=== PATIENT | male | born 1975 | race Caucasian/White ===

== ENCOUNTER 2016-08-08 06:06 | Day surgery (SDC) | payer OTHER ==
[~2016-08-08] VITALS: Ht 182.9 cm; Wt 125.1 kg
[2016-08-08] VITALS (7 sets, daily range): BP systolic 147–168; BP diastolic 95–115; PULSE 88–109; RESP 16–20; TEMP 97.9–98.2; O2SAT 93–97
[2016-08-08] MEDS ORDERED: SODIUM CHLORID 0.9% 500 ML IV PRN (06:45)
[2016-08-08] MEDS ORDERED: POVIDONE IODINE 5% (ANTISEPSIS KIT) 4 APPLICATIONS EACH NARE PRN (06:45)
[2016-08-08] MEDS ORDERED: CHLORHEXIDINE GLUCONATE 2 % 1 PACK (2 CLOTHS) TOPICAL PRN (06:45)
[2016-08-08] MEDS ORDERED: SODIUM CHLORID 0.9% 500 ML INJ 500 ML IV SCH (06:45)
[2016-08-08] MEDS ORDERED: LORazepam 1 MG TAB SL SCH (06:45)
[2016-08-08] MEDS ORDERED: LACTATED RINGER'S 1000 ML IV PRN (06:45)
[2016-08-08] MEDS ORDERED: METOPROLOL TARTRATE 25 MG TAB PO PRN (06:45)
[2016-08-08] MEDS ORDERED: INSULIN HUMAN REGULAR 1,000 UNITS/10 ML VIAL SQ PRN (06:45)
[2016-08-08] MEDS ORDERED: KETAMINE HCL 500 MG/10 ML VIAL ONE (07:13)
[2016-08-08] MEDS ORDERED: MIDAZOLAM HCL 2 MG/2 ML VIAL ONE ×2 (07:13→08:59)
[2016-08-08 07:25] LABS: AUTOMATED NEUTROPHIL # 4.2 TH/MM3 (1.8-7.7); BASOPHIL % 0.6 % (0.0-2.0); EOSINOPHIL # 0.4 TH/MM3 (0-0.4); EOSINOPHIL % 5.9 % (0.0-4.0); HEMATOCRIT 38.9 % (39.0-51.0); HEMO FLAGS DIFF FINAL; INTERNATIONAL NORMALIZED RATIO 0.9 RATIO; LYMPH % 22.6 % (9.0-44.0); LYMPHOCYTE # 1.5 TH/MM3 (1.0-4.8); MEAN CELL VOLUME 87.5 FL (80.0-100.0); MEAN CORPUSCULAR HEMOGLOBIN 29.9 PG (27.0-34.0); MEAN CORPUSCULAR HGB CONC 34.2 % (32.0-36.0); NEUT % 61.9 % (16.0-70.0); PLATELET COUNT 214 TH/MM3 (150-450); RED BLOOD COUNT 4.45 MIL/MM3 (4.50-5.90); RED CELL DISTRIBUTION WIDTH 14.8 % (11.6-17.2); WHITE BLOOD COUNT 6.9 TH/MM3 (4.0-11.0)
[2016-08-08 07:33] LABS: BICARBONATE 24.8 MEQ/L (21.0-32.0); POTASSIUM 3.1 MEQ/L (3.5-5.1)
[2016-08-08 07:46] LABS: APTT (PATIENT) 22.5 SEC (24.3-30.1)
[2016-08-08] MEDS ORDERED: ISOPROTERENOL HCL 1 MG/5 ML AMP ONE (08:23)
[2016-08-08] MEDS ORDERED: METOPROLOL TARTRATE 5 MG/5 ML VIAL ONE (08:31)
[2016-08-08] MEDS ORDERED: HYDR-3583 PO (08:37)
[2016-08-08] MEDS ORDERED: LORA1TAB12 PO (08:37)
[2016-08-08] MEDS ORDERED: METO50TA PO (08:37)
[2016-08-08] MEDS ORDERED: LYRI100C PO (08:37)
[2016-08-08] MEDS ORDERED: ZOLP10TA3 PO (08:37)
[2016-08-08] MEDS ORDERED: MULT-120 PO (08:37)
[2016-08-08] MEDS ORDERED: NEXI40CA PO (08:37)
[2016-08-08] MEDS ORDERED: CYMB60CA PO (08:37)
[2016-08-08] MEDS ORDERED: PRED10 PO (08:37)
[2016-08-08] MEDS ORDERED: PROM12.54 PO (08:37)
[2016-08-08] MEDS ORDERED: FOLI1TAB4 PO (08:37)
[2016-08-08] MEDS ORDERED: BACITRACIN OINT 0.9 GM PKT TOP ONE (08:45)
[2016-08-08] MEDS ORDERED: LORazepam 2 MG/ML VIAL IV PRN (08:45)
[2016-08-08] MEDS ORDERED: METOCLOPRAMIDE HCL 10 MG/2 ML VIAL IV PRN (08:45)
[2016-08-08] MEDS ORDERED: SODIUM CHLOR 0.9% 250 ML INJ 250 ML IV PRN (08:45)
[2016-08-08] MEDS ORDERED: ONDANSETRON HCL 4 MG/2 ML VIAL IV PRN (08:45)
[2016-08-08] MEDS ORDERED: ATROPINE SULFATE 1 MG/ML VIAL IV PRN (08:45)
[2016-08-08] MEDS ORDERED: oxyCODONE/ACETAMINOPHEN 5 MG/325 MG TAB PO PRN ×2 (08:45)
[2016-08-08] MEDS ORDERED: LIDOCAINE HCL 1% 50 ML VIAL INFIL PRN (08:45)
[2016-08-08] MEDS ORDERED: FAMOTIDINE 20 MG/2 ML VIAL ONE (09:50)
[2016-08-08] MEDS ORDERED: PROPOFOL 200 MG/20 ML AMP IV ONE (11:01)
--- NOTE | 2016-08-08 16:43 | EKG ---
Date Performed: 08/08/2016 Time Performed: 06:57:38 PTAGE: 40 years EKG: Sinus tachycardia. Possible anterior infarct - age undetermined Low QRS voltages in precord ial leads Compared to prior tracing no significant change Abnormal ECG NO PREVIOUS TRACING DOCTOR: Mainor Calderon Interpretating Date/Time 08/08/2016 16:40:54
--- NOTE | 2016-08-08 16:44 | EKG ---
Date Performed: 08/08/2016 Time Performed: 08:59:18 PTAGE: 40 years EKG: Sinus rhythm with 1st degree A-V block. Poor R wave progression - probable normal variant Anterior T wave changes are nonspecific Compared to prior tracing no significant change Abnormal ECG PREVIOUS TRACING : 08/08/2016 06.57 DOCTOR: Mainor Calderon Interpretating Date/Time 08/08/2016 16:41:18
[2016-08-08] MEDS ORDERED: LORazepam 1 MG TAB PO PRN (17:45)
[2016-08-08] MEDS: predniSONE 10 MG TAB PO SCH (17:51)
[2016-08-08] MEDS: ACETAMINOPHEN/HYDROcodone 325 MG/10 MG TAB PO PRN ×2 (17:52→23:42)
[2016-08-08] MEDS: DULoxetine HCl DR 60 MG CAP PO SCH (17:53)
[2016-08-08] MEDS ORDERED: ZOLPIDEM TARTRATE 5 MG TAB PO PRN (18:00)
[2016-08-08] MEDS ORDERED: PREGABALIN 100 MG CAP PO SCH (18:00)
[2016-08-08] MEDS ORDERED: PREGABALIN 100 MG CAP PO PRN (18:15)
[2016-08-08] MEDS: METOPROLOL TARTRATE 50 MG TAB PO SCH (19:56)
[2016-08-09] VITALS (14 sets, daily range): BP systolic 150–160; BP diastolic 85–117; PULSE 90–105; RESP 18–20; TEMP 98–98.2; O2SAT 96–97
[2016-08-09] MEDS: ACETAMINOPHEN/HYDROcodone 325 MG/10 MG TAB PO PRN ×2 (06:35→11:28)
[2016-08-09] MEDS: DULoxetine HCl DR 60 MG CAP PO SCH (09:00)
[2016-08-09] MEDS ORDERED: PREGABALIN 100 MG CAP PO SCH (09:00)
[2016-08-09] MEDS: predniSONE 10 MG TAB PO SCH (09:00)
[2016-08-09] MEDS ORDERED: PANTOPRAZOLE SOD 40 MG DELAYED RELEASE TAB PO SCH (09:00)
[2016-08-09] MEDS: METOPROLOL TARTRATE 50 MG TAB PO SCH (09:00)
--- NOTE | 2016-08-09 11:44 | HHI.PR ---
Subjective Remarks Feeling better Objective Vital Signs Date Time Temp Pulse Resp B/P Pulse Ox O2 Delivery O2 Flow Rate FiO2 08/09/16 10:50 97 08/09/16 09:00 104 08/09/16 08:00 98 08/09/16 08:00 98.2 102 18 160/117 96 08/09/16 07:30 96 Room Air 08/09/16 07:00 98 08/09/16 06:00 100 08/09/16 05:00 101 08/09/16 04:00 105 08/09/16 04:00 Room Air 08/09/16 04:00 98.2 105 18 150/102 97 08/09/16 03:00 104 08/09/16 02:00 100 08/09/16 01:00 97 08/09/16 00:00 Room Air 08/09/16 00:00 102 08/09/16 00:00 98.0 102 20 150/85 96 08/08/16 23:00 95 08/08/16 22:00 99 08/08/16 21:00 88 08/08/16 20:00 92 08/08/16 20:00 98.2 92 20 147/95 95 08/08/16 18:33 165/101 08/08/16 18:00 97.9 108 16 168/115 93 08/08/16 18:00 103 I/O 08/08/16 08/08/16 08/08/16 08/09/16 08/09/16 08/09/16 07:00 15:00 23:00 07:00 15:00 23:00 Intake Total 240 ml 480 ml Output Total 500 ml 900 ml Balance 240 ml -500 ml -420 ml Intake Oral 240 ml 480 ml Output Urine Total 300 ml 700 ml Stool Total 200 ml 200 ml Result Diagram: 08/08/1640 08/08/16 0640 Imaging Alert, fully oriented Lungs: ventilated Heart: S1, S2 regular, no gallop Abdomen: soft, no mass Ext: no edema Current Medications Medications (Trade) Dose Ordered Sig/Logan Route Start Time Stop Time Status Last Admin Sodium Chloride 500 ml @ 30 mls/hr [id number] IV 08/08/16 06:45 Lactated Ringer's 1,000 ml @ 0 mls/hr Q0M PRN IV 08/08/16 06:45 08/11/16 06:44 (NS 500 ml Inj) 500 ml @ 30 mls/hr [id number] PRN IV 08/08/16 06:45 08/11/16 06:44 (Atropine Inj) 0.5 mg UNSCH PRN IV 08/08/16 08:45 (Reglan Inj) 10 mg Q4H PRN IV 08/08/16 08:45 (Zofran Inj) 4 mg Q4H PRN IV 08/08/16 08:45 (Cymbalta Dr) 60 mg DAILY PO 08/08/16 18:00 08/09/16 09:00 (Oden 10-325 Mg) 1 tab Q6H PRN PO 08/08/16 17:45 08/09/16 11:28 (Ativan) 1 mg DAILY PRN PO 08/08/16 17:45 (Lopressor) 50 mg BID PO 08/08/16 21:00 08/09/16 09:00 (Protonix) 40 mg DAILY PO 08/09/16 09:00 08/09/16 09:00 (Deltasone) 10 mg DAILY PO 08/08/16 18:00 08/09/16 09:00 (Ambien) 5 mg HS PRN PO 08/08/16 18:00 (Lyrica) 200 mg DAILY PO 08/09/16 09:00 08/09/16 09:00 Assessment and Plan Problem List: (1) Palpitations Status: Acute Plan: Doing well. No episode reported (2) SVT (supraventricular tachycardia) Status: Acute Plan: SP ablation. Doing well. Will be DH. follow up as previously scheduled. Shirley Kyle MD Aug 09, 2016 11:44
[2016-08-09] MEDS ORDERED: AMLO5 PO (11:49)
[2016-08-09] MEDS ORDERED: amLODIPine BESYLATE 5 MG TAB PO SCH (12:00)
--- NOTE | 2016-08-09 13:58 | MA ---
cc: BRITTANIE LAL M.D. 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 INDICATION FOR PROCEDURE Mr. Phelan is a 40-year-old gentleman with a history of tachyarrhythmia, previous ER visit to undergo electrophysiology study and ablation. The risks, the nature and the benefit of the procedure are clearly stated to him. The risks include pneumothorax, cardiac perforation, stroke, need for open heart surgery and even . The patient understood and agreed to proceed. PROCEDURE After written informed consent was obtained, the patient was brought to the EP Lab where he was prepped and draped in the usual sterile fashion. Conscious sedation was initiated and maintained throughout the procedure by anesthesiologist. Once sedation verified, the right and left inguinal area was anesthetized with 2% Xylocaine. Using modified Seldinger technique, the left femoral vein was cannulated on three occasions and three guidewires were advanced; over the wires three 5-Malian Hemaquets were advanced. Then the right femoral vein was cannulated on two occasions and two guidewire were advanced; over the wires a 6 and an 8-Malian Hemaquet were advanced. Then under fluoroscopic guidance through the 5 and 6-Malian Hemaquet, four 5-Malian Alo curved quadripolar electrophysiology catheters advanced and positioned along the His, at the right atrium, coronary sinus and right ventricular apex. Basic interval was measured, they were within normal limits. During catheter manipulation, the patient went into supraventricular tachyarrhythmia with intracardiac characteristic of AV erick reentrant tachycardia. He was pace-terminated. Then atrial pacing protocol was performed. During incremental atrial pacing at the right atrium, again supraventricular tachycardia with intracardiac characteristic of AV erick reentrant tachycardia was induced. Then programmed stimulation was performed, tachyarrhythmia was easily induced. Then ventricular pacing protocol was performed. There was VA conduction and it was concentric. Then through the 8-Malian Hemaquet, a Cordis More D-curve 4-mm mapping radiofrequency ablation from Cordis More was advanced. Using Engage endocardial solution mapping system, a three-dimensional configuration of the right atrium was obtained. Points were taken at the SVC, IVC, TV6, CS and His. Then the catheter was placed at the tricuspid valve annulus. When the observed radiofrequency energy was delivered. The patient went into junctional rhythm. Further burn was delivered in the area. Then atrial pacing protocol was repeated again, Wenckebach of the node was reaching at 380 milliseconds. No tachyarrhythmia was induced. No jump, no echo beat observed. Then ventricular pacing protocol was performed. No tachyarrhythmia was induced. Then Isuprel infusion was initiated 5 linda, no tachyarrhythmia was induced. Post Isuprel no tachyarrhythmia was induced. At that point the procedure was complete. All catheters were removed. The patient going to be transferred to recovery room. No incident to report. The patient tolerated the procedure. Blood loss minimal. 1. Electrocardiogram: At baseline the patient was in sinus, postprocedure electrocardiogram was unchanged. 2. Basic interval: Cycle length was around 640 milliseconds. AH was around 90 and HV was around 46 milliseconds. 3. Atrial pacing protocol: Wenckebach was not able to reach before ablation, post ablation it was around 380 milliseconds. ERP of the node was 500, 300 milliseconds post ablation. 4. Ventricular pacing protocol: There was VA conduction and it was concentric. No tachyarrhythmia was induced. 5. 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 RECOMMENDATIONS The patient going to be transferred to the recovery room. He will be observed, if stable will be discharged home in the morning. MD DORI Antonio/BJF /11:32 AM /12:57 PM
--- NOTE | 2016-08-10 00:10 | EKG ---
Date Performed: 08/09/2016 Time Performed: 10:38:42 PTAGE: 40 years EKG: Sinus rhythm with borderline 1st degree A-V block Poor R wave progression - probable normal variant Septal ST-T c hanges are nonspecific Low QRS voltages in precordial leads Borderline ECG PREVIOUS TRACING : 08/08/2016 08.59 DOCTOR: Shirley Kyle Interpretating Date/Time 08/10/2016 00:08:04
== END 2016-08-09 13:48 | disposition home or self-care (01) ==
LOC: HDIC 06:06 → HDOC 06:06 → HCIS 17:27 → HDOC 08-09 13:48
PROVIDERS: ATTEND Internal Medicine Interventional Cardiology
DX: I47.1 Supraventricular tachycardia (principal); I10 Essential (primary) hypertension
CPT/HCPCS: 00537; 80048; 85025; 85610; 85730; 86850; 86900; 86901; 93005; 93613; 93623; 93653; C1730; C1732; C2630; J2250; J3010; J7512